=== PATIENT | female | born 1960 | race Caucasian/White ===

== ENCOUNTER 2020-12-14 00:38 | Inpatient (IN) | payer OTHER ==
[~2020-12-14] VITALS: Ht 167.6 cm; Wt 61.2 kg
[2020-12-14 08:24] LABS: HEMOGLOBIN 11.9 gm/dl (12.3-15.3); RED BLOOD COUNT 3.84 M/UL (4.00-5.10); WHITE BLOOD COUNT 9.5 K/UL (4.5-11.0)
[2020-12-14] MEDS ORDERED: TYLENOL 500 MG500 MG PO (08:52)
[2020-12-14] MEDS ORDERED: PREDNISONE 20 M20 MG PO (08:53)
[2020-12-14] MEDS ORDERED: LIDOCAINE-HC 3-07 G1 TD (08:55)
[2020-12-14] MEDS ORDERED: PREDNISONE50 MG PO (08:57)
[2020-12-14] MEDS ORDERED: BACTRIM DS TAB1 EACH PO (08:58)
[2020-12-14] MEDS ORDERED: PYRIDIUM200 MG PO (08:58)
[2020-12-14] MEDS ORDERED: LYRICA50 MG PO (08:59)
[2020-12-14] MEDS ORDERED: CIPRO500 MG PO (08:59)
[2020-12-14] MEDS ORDERED: TYLENOL 8 HOUR650 MG PO (09:00)
[2020-12-14 15:20] LABS: BUN/CREATININE RATIO 35 (0-10)
[2020-12-15 06:56] LABS: HEMOGLOBIN 12.1 gm/dl (12.3-15.3); RED BLOOD COUNT 3.83 M/UL (4.00-5.10)
[2020-12-15 07:51] LABS: BUN/CREATININE RATIO 16 (0-10)
[2020-12-16 06:28] LABS: HEMOGLOBIN 12.4 gm/dl (12.3-15.3); RED BLOOD COUNT 3.97 M/UL (4.00-5.10); WHITE BLOOD COUNT 5.3 K/UL (4.5-11.0)
[2020-12-16 07:02] LABS: BUN/CREATININE RATIO 20 (0-10)
[2020-12-16] MEDS ORDERED: AUGMENTIN 875-1 EACH PO (11:27)
[2020-12-16] MEDS ORDERED: BUDESONIDE0.5 MG/2 M NEB (11:27)
[2020-12-16] MEDS ORDERED: IPRAT-ALBUT 0.5-3 ML NEB (11:27)
[2020-12-21 13:10] LABS: 7-AMINOCLONAZEPAM Negative (.); ALPRAZOLAM Negative (.); BENZODIAZEPINES CONFIRM Positive (.); CHLORDIAZEPOXIDE Negative (.); CLONAZEPAM Negative (.); DESALKYLFLURAZEPAM Negative (.); DESMETHYLCHLORDIAZEPOXIDE Negative (.); DESMETHYLDIAZEPAM 15 ng/mL (.); DIAZEPAM 29 ng/mL (.); FLURAZEPAM Negative (.); LORAZEPAM 15.1 ng/mL (.); MIDAZOLAM 41 ng/mL (.); OXAZEPAM Negative (.); TEMAZEPAM Negative (.); TRIAZOLAM Negative (.)
[2020-12-22 13:11] LABS: OXYCODONE Negative (.); OXYCODONES CONFIRMATION Negative (.); OXYMORPHONE Negative (.)
== END 2020-12-16 13:42 | disposition home health service (06) | DRG 917 ==
LOC: CCU 00:38 → M/S 12-15 14:54
PROVIDERS: Internal Medicine; ADMIT Internal Medicine
DX: T39.1X1A Poisoning by 4-Aminophenol derivatives, accidental (unintentional), initial encounter (principal); G92 Toxic encephalopathy; J69.0 Pneumonitis due to inhalation of food and vomit; J96.02 Acute respiratory failure with hypercapnia; J96.01 Acute respiratory failure with hypoxia; N39.0 Urinary tract infection, site not specified; R56.9 Unspecified convulsions; E87.6 Hypokalemia; R74.01 Elevation of levels of liver transaminase levels; R04.0 Epistaxis; Z88.6 Allergy status to analgesic agent; Z88.5 Allergy status to narcotic agent; Z88.8 Allergy status to other drugs, medicaments and biological substances; Z79.899 Other long term (current) drug therapy
CPT/HCPCS: 36415; 36600; 71045; 76705; 80048; 80053; 80076; 80307; 81001; 82550; 82553; 82803; 83605; 83880; 84439; 84443; 84484; 85025; 85610; 86140; 87086; 93005; 94002; 94760; J0132; J0696; J1940; J2250; J2405; J2543; J2704; J7030; J7060; J7070